=== PATIENT | male | born 1965 | race Caucasian/White ===

== ENCOUNTER 2017-04-22 14:44 | Emergency (ER) | payer OTHER ==
[~2017-04-22] VITALS: Ht 157.5 cm; Wt 83.5 kg
[2017-04-22 14:48] VITALS: Ht 157.5 cm; Wt 83.5 kg
[2017-04-22] MEDS ORDERED: ONDANSETRON (ODT) 4 MG TAB ODT STA (16:06)
[2017-04-22] MEDS ORDERED: HYDROCODONE/APAP (5/325) TAB PO ONE (16:30)
--- NOTE | 2017-04-22 16:30 | RADRPT ---
PROCEDURE: Left knee x-ray CLINICAL INDICATION: L knee pain TECHNIQUE: AP, lateral and oblique views of the left knee were obtained. COMPARISON: None FINDINGS: There is normal mineralization. No acute fracture or dislocation is seen. There are no significant degenerative changes. There is no joint effusion. There is no significant soft tissue swelling. IMPRESSION: Normal x-ray of the left knee. .Ramses Guevara MD, MD Date Time Electronically viewed and signed by .Ramses Guevara MD, on 04/22/2017 16:30 .A/
--- NOTE | 2017-04-22 16:32 | RADRPT ---
PROCEDURE: XR Left Ankle. CLINICAL INDICATION: Trauma. Left ankle pain. TECHNIQUE: 3 views. Frontal, lateral, and oblique. COMPARISON: None. FINDINGS: There is no fracture or dislocation. There is lateral soft tissue swelling. Articular surfaces are intact. There is no lytic or blastic lesion. There is no radiopaque foreign body. IMPRESSION: 1. Lateral soft tissue swelling. 2. Otherwise unremarkable images of the left ankle. RPTAT: QQ .Sloan Brand MD, MD Date Time Electronically viewed and signed by .Sloan Brand MD, MD on 04/22/2017 16:32 .R/
[2017-04-22] MEDS ORDERED: HYDR-906 PO (16:38)
[2017-04-22] MEDS ORDERED: NAPR-260 PO (16:38)
--- NOTE | 2017-04-22 23:48 | ERD ---
ER Documentation Chief Complaint Chief Complaint Complains of left knee pain x 3 days HPI Patient is an otherwise healthy 51-year-old male presenting to the emergency department with complaints of left ankle and left knee pain after injury 3 days ago. The patient slipped on the wet ground twisting his left ankle and left knee. He states he heard a pop in the knee. Pain is worse with ambulation. He has been using a cane for ambulation assistance. He took a [place] which he had from a past prescription which provided mild relief. Pain is moderate to severe in severity. He denies head injury, loss of consciousness, or other injuries or symptoms at this time. ROS All systems reviewed and are negative except as per history of present illness. Medications Home Meds Active Scripts Naproxen* (Naprosyn*) 500 Mg Tablet, 500 MG PO BID Y for PAIN AND/OR INFLAMMATION, #30 TAB Prov:NANCY NAQVI PA-C 04/22/17 Hydrocodone/Acetaminophen (Milpitas 5-325 Tablet) 1 Each Tablet, 1 TAB PO Q6H Y for PAIN, #7 TAB Prov:NANCY NAQVI PA-C 04/22/17 Allergies Allergies: Coded Allergies: No Known Allergy (Unverified , 04/22/17) PMhx/Soc Medical and Surgical Hx: pt denies Medical Hx, pt denies Surgical Hx Hx Alcohol Use: Yes Hx Substance Use: No Hx Tobacco Use: No Smoking Status: Never smoker Physical Exam Vitals Vital Signs Date Time Temp Pulse Resp B/P Pulse Ox O2 Delivery O2 Flow Rate FiO2 04/22/17 14:48 98.4 89 20 142/92 100 Physical Exam Const: Nontoxic, well-appearing male resting in the rney in no acute distress. Head: Atraumatic Eyes: Normal Conjunctiva Ext: There is tenderness to palpation with associated edema to the lateral malleolus of the left lower extremity. Range of motion is slightly limited secondary to pain. Kendrick test is intact in the left lower extremity. Patient does have tenderness palpation of the lateral and medial joint lines of the left knee with mild associated edema. There is no ecchymosis when compared to the right knee. Negative anterior and posterior drawer test. Negative Sophia's test. Neur: Awake and alert Psych: Normal Mood and Affect Results 24 hrs Current Medications Medications (Trade) Dose Ordered Sig/Agapito Route PRN Reason Start Time Stop Time Status Last Admin Dose Admin Acetaminophen/ Hydrocodone Bitart (Milpitas (5/325)) 1 tab ONCE ONCE PO 04/22/17 16:30 04/22/17 16:31 DC Ondansetron HCl (Zofran Odt) 4 mg ONCE STAT ODT 04/22/17 16:06 04/22/17 16:09 DC Procedures/MDM This patient is a very pleasant 51-year-old male presented to the emergency department with complaints of left ankle and left knee pain. Physical examination does show some swelling in these areas but is otherwise essentially unremarkable. There is no evidence of fracture or other abnormalities on x-ray imaging. The patient's left ankle pain is likely secondary to a left ankle sprain. Knee pain may be secondary to tendon or ligamental injury. No evidence of life-threatening pathology identified at time of discharge. The patient is to follow-up with orthopedic surgeon and he was given information to do so. He is to return immediately for any new or worsening symptoms. PROCEDURE: XR Left Ankle. CLINICAL INDICATION: Trauma. Left ankle pain. TECHNIQUE: 3 views. Frontal, lateral, and oblique. COMPARISON: None. FINDINGS: There is no fracture or dislocation. There is lateral soft tissue swelling. Articular surfaces are intact. There is no lytic or blastic lesion. There is no radiopaque foreign body. IMPRESSION: 1. Lateral soft tissue swelling. 2. Otherwise unremarkable images of the left ankle. RPTAT: QQ .Sloan Brand MD, MD Date Time Electronically viewed and signed by .Sloan Brand MD, MD on 04/22/2017 16:32 PROCEDURE: Left knee x-ray CLINICAL INDICATION: L knee pain TECHNIQUE: AP, lateral and oblique views of the left knee were obtained. COMPARISON: None FINDINGS: There is normal mineralization. No acute fracture or dislocation is seen. There are no significant degenerative changes. There is no joint effusion. There is no significant soft tissue swelling. IMPRESSION: Normal x-ray of the left knee. .Ramses Guevara MD, MD Date Time Electronically viewed and signed by .Ramses Guevara MD, on 04/22/2017 16: 30 Departure Diagnosis: Primary Impression: Left ankle sprain Encounter type: initial encounter Involved ligament of ankle: unspecified ligament Qualified Code: S93.402A - Sprain of left ankle, unspecified ligament , initial encounter Additional Impression: Left knee pain Chronicity: acute Qualified Code: M25.562 - Acute pain of left knee Condition: Fair Patient Instructions: Treating Ankle Sprains Referrals: [facility] YOU HAVE RECEIVED A MEDICAL SCREENING EXAM AND THE RESULTS INDICATE THAT YOU DO NOT HAVE A CONDITION THAT REQUIRES URGENT TREATMENT IN THE EMERGENCY DEPARTMENT. FURTHER EVALUATION AND TREATMENT OF YOUR CONDITION CAN WAIT UNTIL YOU ARE SEEN IN YOUR DOCTORS OFFICE WITHIN THE NEXT 1-2 DAYS. IT IS YOUR RESPONSIBILITY TO MAKE AN APPOINTMENT FOR FOLOW-UP CARE. IF YOU HAVE A PRIMARY DOCTOR --you should call your primary doctor and schedule an appointment IF YOU DO NOT HAVE A PRIMARY DOCTOR YOU CAN CALL OUR PHYSICIAN REFERRAL HOTLINE AT IF YOU CAN NOT AFFORD TO SEE A PHYSICIAN YOU CAN CHOSE FROM THE FOLLOWING [facility] [address] [facility] [facility] [address] [facility] [facility] [address] [facility] [facility] [address] [facility] [facility] [address] [facility] [facility] [address] [facility]. [facility] Urgent Care 7 a.m.- 11 p.m. Every Day of the Week NO APPOINTMENT OR AUTHORIZATION NEEDED [facility] Hours: Mon-Fri 9:00 AM - 5:00 PM Additional Instructions: Call your primary care doctor TOMORROW for an appointment during the next 1 WEEK.Tell the legal secretary that you were referred from this facility. See the doctor sooner or return here if your condition worsens before your appointment time. Follow up with orthopedic physician, call to arrange an appointment as soon as possible. Information has been provided to do so. Take all medicines as directed. You have been given a medicine which may cause drowsiness.DO NOT DRIVE OR OPERATE DANGEROUS MACHINERY while taking this medicine! NANCY NAQVI PA-C Apr 22, 2017 23:48
== END 2017-04-22 17:10 | disposition home or self-care (01) ==
LOC: FTE 14:44
DX: S93.402A Sprain of unspecified ligament of left ankle, initial encounter (principal); X50.9XXA Other and unspecified overexertion or strenuous movements or postures, initial encounter; Y92.9 Unspecified place or not applicable
CPT/HCPCS: 73562; 73610